=== PATIENT | male | born 1985 | race African-American/Black ===

== ENCOUNTER 2017-09-25 01:23 | Emergency (ER) | payer OTHER ==
[~2017-09-25] VITALS: Ht 177.8 cm; Wt 95.0 kg
[2017-09-25 01:35] VITALS: BP 125/78; PULSE 109; RESP 18; TEMP 98.4; O2SAT 99
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
[2017-09-25 02:05] LABS: AUTOMATED NEUTROPHIL # 7.8 TH/MM3 (1.8-7.7); BASOPHIL # 0.1 TH/MM3 (0-0.2); BASOPHIL % 0.5 % (0.0-2.0); EOSINOPHIL # 0.1 TH/MM3 (0-0.4); HEMATOCRIT 47.2 % (39.0-51.0); HEMO FLAGS DIFF FINAL; LYMPH % 17.7 % (9.0-44.0); LYMPHOCYTE # 1.9 TH/MM3 (1.0-4.8); MEAN CELL VOLUME 88.5 FL (80.0-100.0); MEAN CORPUSCULAR HEMOGLOBIN 30.5 PG (27.0-34.0); MEAN CORPUSCULAR HGB CONC 34.5 % (32.0-36.0); MONO % 9.9 % (0.0-8.0); NEUT % 70.9 % (16.0-70.0); PLATELET COUNT 292 TH/MM3 (150-450); RED BLOOD COUNT 5.33 MIL/MM3 (4.50-5.90); RED CELL DISTRIBUTION WIDTH 14.4 % (11.6-17.2)
[2017-09-25] MEDS ORDERED: ZIPRASIDONE MESYLATE 20 MG VIAL IM ONE ×2 (02:15→03:45)
[2017-09-25] MEDS ORDERED: LORazepam 2 MG/ML VIAL IV PUSH ONE (02:15)
[2017-09-25 02:21] LABS: ALKALINE PHOSPHATASE 63 U/L (45-117); TOTAL BILIRUBIN ADULT 0.8 MG/DL (0.2-1.0)
--- NOTE | 2017-09-25 02:21 | RADRPT ---
EXAM DATE/TIME: 09/25/2017 01:43 [facility] COMPARISON: No previous studies available for comparison. INDICATIONS : Right foot pain. MEDICAL HISTORY : None. SURGICAL HISTORY : None. ENCOUNTER: Initial ACUITY: 1 day PAIN SCORE: Non-responsive. LOCATION: Right foot. FINDINGS: Three view examination of the right foot demonstrates no soft tissue swelling, dislocation, or fractu re. The tarsal bones appear intact. The interphalangeal and metatarsophalangeal joints are intact. The calcaneus is intact. Bony mineralization is normal. CONCLUSION: 1. Negative examination of the foot. Austin Miller MD on September 25, 2017 at 2:19 Board Certified Radiologist. This report was verified electronically.
[2017-09-25 02:22] LABS: ACETAMINOPHEN LESS THAN 2.0 MCG/ML (10.0-30.0); ALCOHOL LESS THAN 3 MG/DL (0-5); ALT (GPT) 25 U/L (12-78); ANION GAP 13 MEQ/L (5-15); AST (GOT) 28 U/L (15-37); BLOOD UREA NITROGEN 22 MG/DL (7-18); CHLORIDE 101 MEQ/L (98-107); GLOMERULAR FILTRATION RATE 40 ML/MIN (>89); POTASSIUM 3.8 MEQ/L (3.5-5.1); SODIUM (NA) 137 MEQ/L (136-145)
[2017-09-25] MEDS ORDERED: SODIUM CHLOR 0.9% 1000 ML INJ 1,000 ML IV ONE (02:45)
[2017-09-25] MEDS ORDERED: LORazepam 2 MG/ML VIAL IM ONE (03:30)
[2017-09-25 06:36] VITALS: BP 135/63; PULSE 68; RESP 18; O2SAT 98
[2017-09-25] MEDS ORDERED: IBUPROFEN 600 MG TAB PO ONE (09:30)
== END 2017-09-25 15:45 ==
LOC: NEPD 01:23 → NEPJ 15:45
DX: F19.90 Other psychoactive substance use, unspecified, uncomplicated (principal); E86.0 Dehydration
CPT/HCPCS: 73630; 80053; 80307; 85025; 96360; 96372; 99285; J2060; J3486; J7030

== ENCOUNTER 2017-09-26 19:36 | Emergency (ER) | payer OTHER ==
[2017-09-26 20:23] VITALS: BP 139/67; PULSE 99; RESP 20; TEMP 98.6; O2SAT 98
[2017-09-26 21:24] VITALS: BP 154/100; PULSE 90; RESP 17; TEMP 99.2; O2SAT 99
[2017-09-26] MEDS ORDERED: OLANZapine IM 10 MG VIAL IM ONE (22:00)
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
--- NOTE | 2017-09-27 14:26 | PD ---
Physical Exam Date Seen by Provider: Sep 27, 2017 Time Seen by Provider: 14:22 Data Data Last Documented VS Vital Signs Date Time Temp Pulse Resp B/P (MAP) Pulse Ox O2 Delivery O2 Flow Rate FiO2 09/26/17 21:24 99.2 90 17 154/100 (118) 99 Room Air Orders Orders Psych Screen (09/26/17 20:34) Drug Screen, Random Urine (09/26/17 20:34) Olanzapine Inj (Zyprexa Inj) (09/26/17 22:00) Diet Regular Basic (09/27/17 Breakfast) Diet Regular Basic (09/27/17 Lunch) Ed Discharge Order (09/27/17 14:06) Labs Laboratory Tests Test 09/26/17 21:17 Urine Opiates Screen NEG Urine Barbiturates Screen NEG Urine Amphetamines Screen NEG Urine Benzodiazepines Screen NEG Urine Cocaine Screen POS Urine Cannabinoids Screen NEG MDM Medical Record Reviewed: Yes Supervised Visit with NATTY: No Narrative Course 32-year-old male presents to the emergency room yesterday, voluntarily, for psychiatric evaluation. He denies any suicidal or homicidal ideation. He has polysubstance abuse and is homeless. Patient was seen by the psychiatric nurse practitioner and given multiple outpatient resources. Upon discharge patient became very cantankerous and aggressive threatening to return in 30 minutes if we did not follow his demands. Patient does not appear to be intoxicated. He is walking without difficulty. He is stable for outpatient follow-up at [facility] and was provided but past but refused. Diagnosis Primary Impression: Mood disorder Scripts No Active Prescriptions or Reported Meds Disposition: 01 DISCHARGE HOME Condition: Stable Abby Hutton Sep 27, 2017 14:26
== END 2017-09-27 14:55 | disposition home or self-care (01) ==
LOC: NEDAMB 19:36 → NEPJ 09-27 14:55
DX: F14.14 Cocaine abuse with cocaine-induced mood disorder (principal); F60.2 Antisocial personality disorder; F25.9 Schizoaffective disorder, unspecified; Z72.0 Tobacco use
CPT/HCPCS: 80307; 96372

== ENCOUNTER 2017-09-28 18:53 | Emergency (ER) | payer OTHER ==
[~2017-09-28] VITALS: Ht 172.7 cm; Wt 90.0 kg
[2017-09-28] MEDS ORDERED: diphenhydrAMINE HCL 50 MG/ML VIAL IM ONE (19:30)
[2017-09-28] MEDS ORDERED: ZIPRASIDONE MESYLATE 20 MG VIAL IM ONE ×2 (19:30)
[2017-09-28] MEDS ORDERED: LORazepam 2 MG/ML VIAL IM ONE (19:30)
--- NOTE | 2017-09-28 19:57 | PD ---
HPI Chief Complaint: Psychiatric Symptoms Time Seen by Provider: 19:23 Travel History International Travel<30 days: No Contact w/Intl Traveler<30days: No Traveled to known affect area: No History of Present Illness HPI 32-year-old black male returns to the ER after being discharged earlier today under [place] act. The patient states that he feels he was not treated appropriately. He states that he was medically cleared, given a bus pass and advised to follow-up with [facility] for medications. The patient states that this is unacceptable. He expects to be brought to [facility]. He states that he has a history of bipolar and schizophrenia. He also has a history of substance abuse. He does not feel he has the capacity to get to [facility]. The patient is threatening. He states that if he goes back to the psych department he will become violent and hurt the people in the department. The patient here admits to feeling suicidal and homicidal. He is very agitated and has an aggressive demeanor. Patient admits to auditory hallucinations. No visual hallucinations. PFSH Past Medical History Narrative Medical Bipolar, schizophrenia Immunizations Current: Yes Social History Alcohol Use: No (marijuana, Daisha) Tobacco Use: Yes Substance Use: Yes Allergies-Medications (Allergen,Severity, Reaction): Coded Allergies: watermelon (Verified Allergy, Severe, Anaphylaxis, 09/28/17) Reported Meds & Prescriptions Reported Meds & Active Scripts Active No Active Prescriptions or Reported Medications Review of Systems General / Constitutional: No: Fever Eyes: No: Visual changes HENT: No: Headaches Cardiovascular: No: Chest Pain or Discomfort Respiratory: No: Shortness of Breath Gastrointestinal: No: Abdominal Pain Genitourinary: No: Dysuria Musculoskeletal: No: Pain Skin: No Rash Neurologic: No: Weakness Psychiatric: Positive: Depression, Suicidal Ideations, Disorder of Thought, Mood Disorder, Substance Abuse, Homicidal Ideation Endocrine: No: Polydipsia Hematologic/Lymphatic: No: Easy Bruising Physical Exam Narrative GENERAL: Well-nourished, well-developed patient. Patient is very agitated and threatening. Security is in the room along with PD. He is in handcuffs. He is placed in 4. restraints. SKIN: Warm and dry. HEAD: Normocephalic and atraumatic. EYES: No scleral icterus. No injection or drainage. ENT: No nasal drainage noted. Mucous membranes pink. Airway patent. NECK: Supple, trachea midline. Moves head freely without obvious discomfort. CARDIOVASCULAR: Regular rate and rhythm without murmurs, gallops, or rubs. RESPIRATORY: Breath sounds equal bilaterally. No accessory muscle use. GASTROINTESTINAL: Abdomen soft, non-tender, nondistended. EXTREMITIES: No cyanosis or edema. BACK: Nontender without obvious deformity. No CVA tenderness. NEURO: Patient is alert and oriented. no sensorimotor deficits. Nonfocal. Normal speech. PSYCH: No delusions. No auditory or visual hallucinations. Data Data Last Documented VS Vital Signs Date Time Temp Pulse Resp B/P (MAP) Pulse Ox O2 Delivery O2 Flow Rate FiO2 09/28/17 20:08 98.6 121 20 166/95 (118) 99 Orders Orders Ziprasidone Inj (Geodon Inj) (09/28/17 19:30) Diphenhydramine Inj (Benadryl Inj) (09/28/17 19:30) Lorazepam Inj (Ativan Inj) (09/28/17 19:30) Psych Screen (09/28/17 19:26) Restraints Violent (09/28/17 19:26) Ziprasidone Inj (Geodon Inj) (09/28/17 19:30) Olanzapine Inj (Zyprexa Inj) (09/28/17 20:00) Diet Regular Basic (09/28/17 Dinner) MDM Medical Decision Making Medical Screen Exam Complete: Yes Emergency Medical Condition: Yes Medical Record Reviewed: Yes Differential Diagnosis MDM: High Differential diagnoses: Schizophrenia, schizoaffective disorder, bipolar, anxiety, depression, adjustment reaction, mood disorder NOS, ODD, depressive disorder NOS, dementia, dementia with agitation, psychosis NOS, substance induced mood disorder, DMDD, Asperger syndrome, infection,electrolyte abnormality, malingering. Narrative Course Mental health screening discussed with the patient. Psychiatric screen ordered. The patient is placed in bilateral restraints due to his threats of violence towards the staff and suicidal ideation. Patient is medicated with Zyprexa 10 mg, Benadryl 50 mg, and Ativan 2 mg IM. Patient is also in seclusion. Patient is been medically cleared This is anti-social personality disorder, medical clearance for psychiatric admission Diagnosis Primary Impression: Antisocial personality disorder Additional Impression: Medical clearance for psychiatric admission Scripts No Active Prescriptions or Reported Meds Condition: Stable Keelen,Chase T. PA Sep 28, 2017 19:57
[2017-09-28] MEDS ORDERED: OLANZapine IM 10 MG VIAL IM ONE (20:00)
[2017-09-28 20:08] VITALS: BP 166/95; PULSE 121; RESP 20; TEMP 98.6; O2SAT 99
[2017-09-29 04:10] VITALS: BP 148/109; PULSE 98; RESP 20; O2SAT 99
== END 2017-09-29 05:08 ==
LOC: NEPD 18:53
DX: F60.2 Antisocial personality disorder (principal); F31.9 Bipolar disorder, unspecified; F20.9 Schizophrenia, unspecified
CPT/HCPCS: 96372; 99285; J1200; J2060